=== PATIENT | female | born 1945 | race Caucasian/White ===

== ENCOUNTER → 2017-11-23 | Outpatient (CLI) | payer MEDICARE, MEDICAID ==
--- NOTE | 2017-11-23 16:53 | 2DMMODE ---
[place] [address] 2 D/M-MODE ECHOCARDIOGRAM Name: MIL EDGAR Room: [facility]#: [id number] Admission: 11/23/17 Attend Phys: Venu Luevano Discharge: Date of : 45 Date of Service: 11/23/17 1653 Report #: [id number] THIS REPORT FOR: //name// APPROVED REPORT Study performed: 11/23/2017 15:08:27 EXAM: Limited 2D Echocardiogram Patient Location: Out-Patient BSA: 1.96 HR: 93 bpm BP: 160/90 mmHg Other Information Study Quality: Good Indications Dyspnea 2D Dimensions LVEF(%): 77.57 (>50%) IVSd: 9.69 (7-11mm) LVDd: 41.89 mm PWd: 9.30 (7-11mm) LVDs: 22.69 (25-40mm) Aortic Root: 25.74 mm Watts's LVEF: 77.57 % Left Ventricle The left ventricle is normal size. There is normal LV segmental wall motion. There is normal left ventricular wall thickness. The left ventricular systolic function is normal. The left ventricular ejection fraction is within the normal range. LVEF is 60-65%. Right Ventricle The right ventricle is normal size. The right ventricular systolic function is normal. Atria The left atrium size is normal. The right atrium size is normal. Aortic Valve The aortic valve is normal in structure. No aortic regurgitation is present. There is no aortic valvular stenosis. [address] [address] 2 D/M-MODE ECHOCARDIOGRAM Name: MIL EDGAR Room: [facility]#: [id number] Admission: 11/23/17 Attend Phys: Venu Luevano Discharge: Date of : 45 Date of Service: 11/23/171652 Report #: [id number] Mitral Valve There is mitral annular calcification. There is no mitral valve regurgitation noted. No evidence of mitral valve stenosis. Tricuspid Valve The tricuspid valve is normal in structure. There is no tricuspid valve regurgitation noted. Pulmonic Valve The pulmonary valve is normal in structure. There is no pulmonic valvular regurgitation. Great Vessels The aortic root is normal in size. The inferior vena cava is not well visualized. Pericardium There is no pericardial effusion. <Conclusion> The left ventricular systolic function is normal. The left ventricular ejection fraction is within the normal range. <ELECTRONICALLY SIGNED> By: Leon Wu MD, [facility] 11/23/171652 52 1653 Leon Wu MD, FACC /INF
== END ==
LOC: M.CRD 14:46
DX: R06.09 Other forms of dyspnea (principal)

== ENCOUNTER → 2019-04-30 | Outpatient (CLI) | payer MEDICARE, MEDICAID | LOC: M.MRI 14:03 | DX: M47.22 Other spondylosis with radiculopathy, cervical region (principal); M50.11 Cervical disc disorder with radiculopathy, high cervical region; C82.96 Follicular lymphoma, unspecified, intrapelvic lymph nodes; C85.90 Non-Hodgkin lymphoma, unspecified, unspecified site; D50.9 Iron deficiency anemia, unspecified; G89.4 Chronic pain syndrome; M41.82 Other forms of scoliosis, cervical region; M43.12 Spondylolisthesis, cervical region; M46.02 Spinal enthesopathy, cervical region; Z88.8 Allergy status to other drugs, medicaments and biological substances ==